=== PATIENT | male | born 1950 | race Caucasian/White ===

== ENCOUNTER 2018-04-04 13:38 | Day surgery (SDC) | payer MEDICARE ==
[~2018-04-04] VITALS: Ht 182.9 cm; Wt 109.7 kg
[2018-04-04] VITALS (8 sets, daily range): BP systolic 127–150; BP diastolic 69–88
[~2018-04-04 13:38] MED LIST: ASPI-2 PO; CHOL10002 PO; CLOP75TA16 PO; EZET1TAB35 PO; FENO145T36 PO; GABA-532 PO; HYDR25TA4 PO; METO50TA7 PO; OXYC40TA48 PO; VITA400C21 PO; VITC500T PO; WEL625T PO; [UNRECOGNIZED DRUG - CODE] PO
[2018-04-04] MEDS ORDERED: sod bicarbonate 150mEq in D5W 1,150 ML IV ONE (14:00)
[2018-04-04] MEDS ORDERED: diphenhydrAMINE 25mg capsule PO ONE (14:00)
[2018-04-04 14:49] LABS: ALBUMIN 3.9 G/DL (3.4-5.0); ANION GAP 10 (8-16); BASOPHILS % (AUTO) 0.4 % (0-1); BLOOD UREA NITROGEN 19 MG/DL (7-18); BUN/CREATININE RATIO 20.4 (5.4-32.0); CHLORIDE 103 MMOL/L (99-107); CREATININE 0.93 MG/DL (0.60-1.10); EOSINOPHILS # (AUTO) 0.1 X10'3 (0-0.9); EOSINOPHILS % (AUTO) 1.9 % (0-6); GLUCOSE 94 MG/DL (70-104); HEMATOCRIT 41.7 % (42.0-52.0); HEMOGLOBIN 13.9 g/dl (14.0-17.9); LYMPHOCYTES # (AUTO) 0.8 X10'3 (1.1-4.8); LYMPHOCYTES % (AUTO) 14.2 % (21-51); MAGNESIUM 1.7 MG/DL (1.5-2.4); MEAN CORPUSCULAR HGB CONC 33.4 % (33.0-36.5); MEAN CORPUSCULAR VOLUME 86.6 FL (78-98); MEAN PLATELET VOLUME 7.4 FL (7.4-10.4); MONOCYTES # (AUTO) 0.6 X10'3 (0-0.9); NEUTROPHILS # (AUTO) 4.4 X10'3 (1.8-7.7); NEUTROPHILS % (AUTO) 73.5 % (42-75); PLATELET COUNT 186 X10'3 (140-440); POTASSIUM 3.9 MMOL/L (3.5-5.1); RED BLOOD COUNT 4.81 X10'6 (4.70-6.10); RED CELL DISTRIBUTION WIDTH 13.7 % (11.5-14.5); SODIUM 142 MMOL/L (135-145); TOTAL CARBON DIOXIDE 29.5 MMOL/L (24-32); eGFR 80 ML/MIN
[2018-04-04 14:54] LABS: PARTIAL THROMBOPLASTIN TIME 27 SECONDS (22-32)
[2018-04-04] MEDS ORDERED: normal saline 1000ml 1,000 ML IV SCH (14:55)
[2018-04-04] MEDS ORDERED: METF-438 PO (15:07)
[2018-04-04] MEDS ORDERED: BUPR1PAT20 (15:07)
[2018-04-04] MEDS ORDERED: LEVO75TA PO (15:07)
[2018-04-04] MEDS ORDERED: OMEG1CAP2 (15:07)
[2018-04-04] MEDS ORDERED: DOCU100C41 PO (15:07)
[2018-04-04] MEDS ORDERED: NITR0.4T48 SL (15:07)
[2018-04-04] MEDS ORDERED: VITAMIN D3 PO (15:07)
[2018-04-04] MEDS ORDERED: VITA400C21 PO (15:07)
[2018-04-04] MEDS ORDERED: NALO12.5 (15:07)
[2018-04-04] MEDS ORDERED: midazolam 2 mg/2 ml injection ONE ×2 (16:52→17:15)
[2018-04-04] MEDS ORDERED: LIDOcaine 1% (10mg/ml)w/preservative injection 20ml MDV ONE (16:52)
[2018-04-04] MEDS ORDERED: iohexol 350 MG/ML 50ML vial IV ONE (16:52)
[2018-04-04] MEDS ORDERED: fentaNYL/PF 50MCG/1 ML 2ML syringe ONE ×2 (16:52→17:47)
[2018-04-04] MEDS ORDERED: iohexol 350MG/ML 100ml bottle IV ONE (16:53)
[2018-04-04] MEDS ORDERED: heparin 1,000unit/ml 10ml vial 10 ML ONE (17:28)
[2018-04-04] MEDS ORDERED: iohexol 350 MG/1 ML 200ml bottle ONE (17:28)
[2018-04-04] MEDS ORDERED: clopidogrel 300mg tablet ONE (18:01)
[2018-04-04] MEDS ORDERED: ketorolac tromethamine 15mg/ml inj. IV ONE (19:30)
== END 2018-04-04 20:55 | disposition home or self-care (01) ==
LOC: SSTAY O 13:38
PROVIDERS: ATTEND Internal Medicine Cardiovascular Disease
DX: I25.708 Atherosclerosis of coronary artery bypass graft(s), unspecified, with other forms of angina pectoris (principal); I45.19 Other right bundle-branch block; I10 Essential (primary) hypertension; E78.5 Hyperlipidemia, unspecified; I25.2 Old myocardial infarction; M19.90 Unspecified osteoarthritis, unspecified site; G89.29 Other chronic pain; E03.9 Hypothyroidism, unspecified; E11.9 Type 2 diabetes mellitus without complications; I25.5 Ischemic cardiomyopathy; Z79.01 Long term (current) use of anticoagulants; Z95.5 Presence of coronary angioplasty implant and graft; Z72.89 Other problems related to lifestyle; Z85.72 Personal history of non-Hodgkin lymphomas; Z95.1 Presence of aortocoronary bypass graft; Z79.84 Long term (current) use of oral hypoglycemic drugs; Z79.82 Long term (current) use of aspirin; Z79.891 Long term (current) use of opiate analgesic; Z88.8 Allergy status to other drugs, medicaments and biological substances; Z79.899 Other long term (current) drug therapy; Z98.890 Other specified postprocedural states
CPT/HCPCS: 36415; 80048; 83735; 85025; 85610; 85730; 92928; 93005; 93459; 99152; 99153; A6257; C1760; C1876; J1644; J1885; J2001; J2250; J3010; J7030; Q0163; Q9967; A4620; C1725; C1769; C1894; C9600

== ENCOUNTER 2023-08-25 09:02 | Outpatient (CLI) | payer MEDICARE ==
[~2023-08-25 09:02] MED LIST changes: +BUPR1PAT20; +CALC-1151 PO; +CLOP-32 PO; -CLOP75TA16 PO; +COLE625T29 PO; +DOCU100C41 PO; +FENO145T26 PO; -FENO145T36 PO; -HYDR25TA4 PO; +LEVO75TA PO; +METF-438 PO; +NALO12.52; +NITR0.4T48 SL; +OMEG1CAP2; +VITAMIN D3 PO; -WEL625T PO; -[UNRECOGNIZED DRUG - CODE] PO
[2023-08-25 10:18] VITALS: BP 100/58; PULSE 39; RESP 18; O2SAT 93
[2023-08-25] MEDS ORDERED: CHLO25TA10 PO (11:44)
[2023-08-25] MEDS ORDERED: DAPA5TAB PO (11:46)
[2023-08-25] MEDS ORDERED: APIX5TAB3 PO (11:47)
[2023-08-26] MEDS ORDERED: METO-395 PO (10:42)
== END 2023-08-25 23:59 | disposition home or self-care (01) ==
LOC: RAD 09:02
PROVIDERS: ATTEND Internal Medicine Cardiovascular Disease
DX: I25.10 Atherosclerotic heart disease of native coronary artery without angina pectoris (principal); I42.9 Cardiomyopathy, unspecified
CPT/HCPCS: 78451; A9500; 78452

== ENCOUNTER 2023-08-25 10:32 | Observation (INO) | payer MEDICARE ==
[~2023-08-25] VITALS: Ht 182.9 cm; Wt 100.0 kg
[2023-08-25] MEDS: normal saline 1000ml 1,000 ML IV ONE (11:10)
[2023-08-25] MEDS ORDERED: CHLO25TA10 PO (11:44)
[2023-08-25] MEDS ORDERED: DAPA5TAB PO (11:46)
[2023-08-25] MEDS ORDERED: APIX5TAB3 PO (11:47)
[2023-08-25 11:56] LABS: BASOPHILS % (AUTO) 0.3 % (0-1); EOSINOPHILS # (AUTO) 0.1 X10'3 (0-0.9); HEMATOCRIT 42.4 % (42.0-52.0); HEMOGLOBIN 13.6 g/dl (14.0-17.9); LYMPHOCYTES # (AUTO) 0.4 X10'3 (1.1-4.8); MEAN CORPUSCULAR HEMOGLOBIN 28.3 PG (27.0-31.0); MEAN CORPUSCULAR HGB CONC 32.1 g/dL (33.0-36.5); MEAN CORPUSCULAR VOLUME 88.2 FL (78-98); MEAN PLATELET VOLUME 9.2 FL (7.4-10.4); MONOCYTES # (AUTO) 0.6 X10'3 (0-0.9); MONOCYTES % (AUTO) 12.7 % (2-12); NEUTROPHILS # (AUTO) 3.8 X10'3 (1.8-7.7); PLATELET COUNT 113 X10'3 (140-440); RED CELL DISTRIBUTION WIDTH 16.1 % (11.5-14.5); WHITE BLOOD COUNT 4.9 X10'3 (4.5-11.0)
[2023-08-25 12:55] LABS: ANION GAP 4 (8-16); CHLORIDE 105 MMOL/L (99-107); POTASSIUM 4.5 MMOL/L (3.5-5.1); SODIUM 142 MMOL/L (135-145); TOTAL CARBON DIOXIDE 32.7 MMOL/L (24-32)
[2023-08-25 12:58] LABS: ALANINE AMINOTRANSFERASE 11 U/L (12-78); ALBUMIN 3.9 G/DL (3.4-5.0); ALBUMIN/GLOBULIN RATIO 1.1 (1.1-1.5); ALKALINE PHOSPHATASE 22 IU/L (46-116); ASPARTATE AMINO TRANSFERASE 21 U/L (10-37); BILIRUBIN,TOTAL 0.6 MG/DL (0.1-1.0); BLOOD UREA NITROGEN 34 MG/DL (7-18); CALCIUM 9.4 MG/DL (8.5-10.1); CREATININE 1.03 MG/DL (0.60-1.10); GLUCOSE 86 MG/DL (70-104); TOTAL PROTEIN 7.6 G/DL (6.4-8.2); eCRCL 68 ML/MIN; eGFR 70 ML/MIN
[2023-08-25] MEDS ORDERED: albuterol 2.5 MG/3 ML nebule CONTNEB PRN (13:15)
[2023-08-25] MEDS: albuterol 2.5 MG/3 ML nebule NEB ONE (13:42)
[2023-08-25 13:46] VITALS: PULSE 46; PULSE 52; RESP 18; O2SAT 99
[2023-08-25] MEDS ORDERED: magnesium Cl slow-release 64mg tablet PO PRN (14:50)
[2023-08-25] MEDS ORDERED: magnesium 4gm in 100ml NS 100 ML IV PRN (14:50)
[2023-08-25] MEDS ORDERED: potassium Cl 20 mEq SR tablet PO PRN ×2 (14:50)
[2023-08-25] MEDS ORDERED: acetaminophen 325mg tablet PO PRN ×2 (14:50)
[2023-08-25] MEDS ORDERED: potassium Cl 40MEQ/1/2NS 520ml 520 ML IV PRN (14:50)
[2023-08-25] MEDS ORDERED: magnesium 2GM in 50ml NS 50 ML IV PRN (14:50)
[2023-08-25] MEDS ORDERED: ondansetron/PF 4mg/2ml inj IV PRN (14:50)
[2023-08-25] MEDS: normal saline 1000ml 1,000 ML IV SCH (15:09)
[2023-08-25] MEDS ORDERED: DEXTROSE 15 GM of carb/4 tabs (each vial/BOTTLE has 4 tablets) PO PRN ×2 (16:20)
[2023-08-25] MEDS ORDERED: glucagon, human recombinant 1mg kit SUBCUT PRN (16:20)
[2023-08-25] MEDS ORDERED: dextrose 50%-water 50ml dispensing syringe IV PRN ×2 (16:20)
[2023-08-25] MEDS: INSULIN LISPRO 100 UNIT/ML INSULN.PEN MULTI-DOSE SQ SCH (17:00)
[2023-08-25 19:30] VITALS: BP 151/71; PULSE 59; RESP 10; TEMP 98.2; O2SAT 94
[2023-08-25 20:00] VITALS: BP_SYST 148; BP_SYST 151; BP_DIAS 59; BP_DIAS 72; PULSE 59
[2023-08-25] MEDS: heparin, porcine 5000 units/ml vial SQ SCH (21:51)
[2023-08-25 22:00] VITALS: BP 116/40; PULSE 58; RESP 20; TEMP 97.4; O2SAT 92
[2023-08-26 02:00] VITALS: BP 109/49; PULSE 61; RESP 19; TEMP 97; O2SAT 90
[2023-08-26 06:00] VITALS: BP 154/76; PULSE 63; RESP 20; TEMP 98.1; O2SAT 98
[2023-08-26 07:16] LABS: BASOPHILS % (AUTO) 0.4 % (0-1); EOSINOPHILS # (AUTO) 0.1 X10'3 (0-0.9); EOSINOPHILS % (AUTO) 1.3 % (0-6); HEMATOCRIT 41.2 % (42.0-52.0); HEMOGLOBIN 13.3 g/dl (14.0-17.9); LYMPHOCYTES # (AUTO) 0.5 X10'3 (1.1-4.8); MEAN CORPUSCULAR HEMOGLOBIN 28.3 PG (27.0-31.0); MEAN CORPUSCULAR HGB CONC 32.4 g/dL (33.0-36.5); MEAN CORPUSCULAR VOLUME 87.6 FL (78-98); MEAN PLATELET VOLUME 9.1 FL (7.4-10.4); MONOCYTES # (AUTO) 0.5 X10'3 (0-0.9); MONOCYTES % (AUTO) 11.4 % (2-12); NEUTROPHILS # (AUTO) 3.5 X10'3 (1.8-7.7); NEUTROPHILS % (AUTO) 76.9 % (42-75); PLATELET COUNT 108 X10'3 (140-440); RED CELL DISTRIBUTION WIDTH 16.3 % (11.5-14.5); WHITE BLOOD COUNT 4.5 X10'3 (4.5-11.0)
[2023-08-26 07:32] LABS: ALANINE AMINOTRANSFERASE 9 U/L (12-78); ALBUMIN 3.9 G/DL (3.4-5.0); ALKALINE PHOSPHATASE 25 IU/L (46-116); ANION GAP 2 (8-16); ASPARTATE AMINO TRANSFERASE 20 U/L (10-37); BILIRUBIN,TOTAL 0.7 MG/DL (0.1-1.0); BLOOD UREA NITROGEN 31 MG/DL (7-18); BUN/CREATININE RATIO 33.7 (10.0-20.0); CALCIUM 9.3 MG/DL (8.5-10.1); CHLORIDE 104 MMOL/L (99-107); CREATININE 0.92 MG/DL (0.60-1.10); GLUCOSE 93 MG/DL (70-104); POTASSIUM 3.9 MMOL/L (3.5-5.1); SODIUM 139 MMOL/L (135-145); TOTAL PROTEIN 7.7 G/DL (6.4-8.2); eCRCL 76 ML/MIN; eGFR 80 ML/MIN
[2023-08-26 08:00] VITALS: BP_SYST 151; BP_SYST 160; BP_SYST 161; BP_DIAS 76; BP_DIAS 82; PULSE 69; PULSE 74; PULSE 75
[2023-08-26] MEDS ORDERED: albuterol 2.5 MG/3 ML nebule CONTNEB ONE (08:00)
[2023-08-26] MEDS ORDERED: METO-395 PO (10:42)
[2023-08-26 11:00] VITALS: BP 142/73; PULSE 69; RESP 12; TEMP 98.4; O2SAT 98
== END 2023-08-26 12:14 | disposition home or self-care (01) ==
LOC: ER 10:32 → ED HOLD 14:51 → PCU 3S 19:30
PROVIDERS: ADMIT Internal Medicine; ATTEND Internal Medicine
DX: I44.0 Atrioventricular block, first degree (principal); I25.10 Atherosclerotic heart disease of native coronary artery without angina pectoris; E78.5 Hyperlipidemia, unspecified; E11.9 Type 2 diabetes mellitus without complications; E03.9 Hypothyroidism, unspecified; I21.A1 Myocardial infarction type 2; I48.20 Chronic atrial fibrillation, unspecified; I49.8 Other specified cardiac arrhythmias; Z79.899 Other long term (current) drug therapy; Z79.82 Long term (current) use of aspirin
CPT/HCPCS: 36415; 71045; 80053; 82948; 84484; 85025; 87081; 93005; 93306; 94640; 94760; 96360; 96361; 96372; 99285; A6258; A9500; G0378; J1644; J1815; J7030; 78451; 78452